=== PATIENT | male | born 2000 | race Caucasian/White ===

== ENCOUNTER 2025-01-26 07:28 | Emergency (ER) | payer OTHER ==
[~2025-01-26] VITALS: Ht 172.7 cm; Wt 70.2 kg
[2025-01-26 08:03] LABS: BASO # 0.1 10^3/uL (0.0-0.2); BASO % 0.5 % (0.0-1.0); EOS # 0.1 10^3/uL (0.0-0.5); EOS % 0.9 % (0.0-3.0); LYMPH # 0.6 10^3/uL (1.5-5.0); LYMPH % 4.5 % (24.0-44.0); MONO # 0.6 10^3/uL (0.0-0.8); MONO % 4.4 % (2.0-8.0); NEUTROPHILS # 11.8 10^3/uL (1.5-8.5); NEUTROPHILS % 89.2 % (36.0-66.0); PLATELET COUNT, AUTOMATED 232 10^3/uL (150-450)
[2025-01-26 08:32] LABS: ALT/SGPT 151 U/L (7.0-40); AST/SGOT 73 U/L (<34); CALCIUM LEVEL 9.3 MG/DL (8.5-10.1); CARBON DIOXIDE LEVEL 31 MMOL/L (20-31); CHLORIDE LEVEL 99 MMOL/L (98-107); CREATININE FOR GFR 1.08 MG/DL (0.70-1.30); GLOMERULAR FILTRATION RATE > 90.0 (>60); POTASSIUM SERUM 4.3 MMOL/L (3.5-5.1); SODIUM LEVEL 140 MMOL/L (136-145)
[2025-01-26] MEDS: ONDANSETRON 4MG ORAL DISINTEGRATING TAB PO ONE (08:47)
[2025-01-26] MEDS: ACETAMINOPHEN 325 MG TAB PO ONE (08:47)
[2025-01-26] MEDS ORDERED: ISOVUE-370 76% 100 ML VIAL As Ordered ONE (10:44)
[2025-01-26 11:57] VITALS: TEMP 98.7
[2025-01-26 12:30] VITALS: BP 120/69; O2SAT 99
[2025-01-26] MEDS ORDERED: ONDA-282 PO (12:34)
== END 2025-01-26 12:40 | disposition home or self-care (01) ==
LOC: M ED 07:28
DX: A08.4 Viral intestinal infection, unspecified (principal)
CPT/HCPCS: 74177; 80048; 80076; 83690; 85025; 87486; 87581; 87633; 87798; 99284; Q9967